=== PATIENT | female | born 1950 | race Caucasian/White ===

== ENCOUNTER 2016-07-22 11:58 | Observation (INO) | payer MEDICARE ==
[2016-07-22] MEDS ORDERED: IPRATROPIUM/ALBUTEROL 0.5/3 MG 3 ML AMPUL.NEB INHALATION ONE ×2 (12:14→13:16)
[2016-07-22] MEDS ORDERED: METHYLPREDNISOLONE SOD 125 MG/2 ML VIAL ONE (12:14)
--- NOTE | 2016-07-22 12:23 | RADIOLOGY REPORT ---
EXAM:CHEST; SINGLE VIEW [id number] INDICATION: Shortness of breath COMPARISON:None TECHNIQUE:AP portable radiograph was obtained. FINDINGS: The heart and mediastinum are normal. There is mild peribronchial thickening. No airspace i nfiltrate or pleural effusion is demonstrated. The chest wall appears intact. There is no pneumothora x. IMPRESSION:Mild airways thickening, which may be from bronchitis or asthma. No acute pneumonia. Final Electronic Signature: This report was electronically signed by Dillon Austin MD on 07/22/2016 12:20 PM. piedad /
[2016-07-22 12:44] LABS: BLOOD UREA NITROGEN 8 mg/dL (7-17); CALCIUM 8.7 mg/dL (8.4-10.2); CHLORIDE 110 mmol/L (98-107); CREATININE 0.6 mg/dL (0.5-1.0); EST GLOMERULAR FILTRATION RATE > 60 mL/min; GLUCOSE 92 mg/dL (70-100); POTASSIUM 3.7 mmol/L (3.5-5.1); SODIUM 141 mmol/L (137-145)
[2016-07-22 12:57] LABS: TROPONIN I < 0.012 ng/mL (0.00-0.034)
[2016-07-22 12:59] LABS: BASOPHILS 0.5 % (0.0-2.0); EOSINOPHILS 1.3 % (0.0-6.0); EOSINOPHILS# 0.1 X 10^3uL (0.0-0.4); HEMATOCRIT 45.4 % (36.0-48.0); HEMOGLOBIN 15.4 g/dL (12.0-16.0); LYMPHOCYTES 20.1 % (20.0-40.0); LYMPHOCYTES# 1.1 X 10^3uL (0.8-3.8); MEAN CELL VOLUME 90.3 fL (84.0-102.0); MEAN CORPUS. HGB CONCENTRATION 33.9 g/dL (32.0-36.0); MEAN CORPUSCULAR HEMOGLOBIN 30.6 pg (29.0-35.0); MONOCYTES 12.9 % (2.0-10.0); MONOCYTES# 0.7 X 10^3uL (0.2-1.0); NEUTROPHILS 65.2 % (54.0-75.0); NEUTROPHILS# 3.5 X 10^3uL (2.6-6.7); PLATELET COUNT 171 X 10^3uL (130-440); RED BLOOD COUNT 5.03 X 10^6uL (4.20-6.10); RED CELL DISTRIBUTION WIDTH 12.5 % (11.5-14.5); WHITE BLOOD COUNT 5.4 X 10^3uL (3.9-10.7)
[2016-07-22] MEDS ORDERED: MAGNESIUM SULFATE 100 ML IV ONE (13:16)
[2016-07-22] MEDS ORDERED: AZITHROMYCIN 250 MG TABLET PO ONE (13:16)
[2016-07-22] MEDS ORDERED: HOME MEDICATION LIST NEEDED 1 EA EACH MC ONE (13:26)
[2016-07-22] MEDS ORDERED: ACETAMINOPHEN 325 MG TABLET PO PRN (13:26)
[2016-07-22] MEDS ORDERED: NICOTINE 21 MG PATCH ONE (13:27)
[2016-07-22] MEDS ORDERED: INFLUENZA VACCINE 60 MCG/0.5 ML IM ONE ×2 (13:43→16:19)
[2016-07-22] MEDS ORDERED: CEFTRIAXONE SODIUM 1,000 MG/10 ML VIAL ONE (13:58)
[2016-07-22] MEDS ORDERED: CEFTRIAXONE SODIUM 1,000 MG/10 ML VIAL IV SCH (14:00)
[2016-07-22] MEDS ORDERED: NORMAL SALINE 100 ML IV ONE (14:05)
--- NOTE | 2016-07-22 14:15 | ER PHYSICIAN DOCUMENTATION ---
Physician Documentation [facility] Name:Marbella Cueva Age:66 yrs Sex:Female :1950 Arrival Date:07/22/2016 Time:11:58 Bed1 Private MD: Onofre Bourgeois Disposition: 07/22/16 13:15 Admit ordered for Abdifatah Reyes. Preliminary diagnosis are COPD Exacerbation, Hypoxia. - Bed requested for Medical/Surgical. - Condition is Fair. - Problem is new. - Symptoms are unchanged. 23 HR OBS Yes HPI: 07/22 12:18 This 66 yrs old Female presents to ER with complaints of Breathing Difficulty.jm 12:18 The patient has shortness of breath at rest. Onset: The symptom(s)/episode jm began/occurred yesterday, and became worse today. Duration: The symptoms are continuous. The patient's shortness of breath is aggravated by nothing. Associated signs and symptoms: Pertinent positives: non-productive cough, Pertinent negatives: chest pain, fever. Severity of symptoms: in the emergency department the symptoms are unchanged. Risk Factors Risk factors for coronary artery disease include: This patient is a smoker. The patient has not experienced similar symptoms in the past. The patient has not recently seen a physician. Pt w 50 pack year hx here w SOB after a bout of laryngitis. She thinks its moved into her lungs. No fever or sputum. Pt thinks she might have COPD, but has never been diagnosed. . Historical: - Allergies: No known drug Allergies; - Home Meds: 1. Metoprolol Tartrate Oral 2. Bupropion Oral 3. Paxil Oral 4. Oxycodone-Acetaminophen Oral 5. Alprazolam Oral - PMHx: Past IV drug abuser; Hypertension; DEPRESSION; ARTHRITIS; - PSHx: ; Cholecysectomy; Tonsillectomy; - Tetanus: < 10 years. - Ebola Screening: : No symptoms or risks identified at this time. . - Social history: Smoking status: Patient uses tobacco products, heavy tobacco smoker. - Immunization history: Pneumococcal vaccine is not up to date, Flu Vaccine >1 year. ROS: 12:27 Constitutional: Negative for fatigue, fever, malaise. jm 12:27 Eyes: Negative for blurry vision, visual disturbance. 12:27 ENT: Positive for hoarseness, Negative for injury or acute deformity. 12:27 Neck: Negative for swelling, swollen nodes. 12:27 Cardiovascular: Negative for chest pain. 12:27 Respiratory: Positive for cough, dyspnea on exertion, shortness of breath, Negative for hemoptysis. 12:27 Abdomen/GI: Negative for abdominal pain, nausea, vomiting, diarrhea. 12:27 Back: Negative for pain at rest, pain with movement. 12:27 MS/extremity: Negative for swelling, tenderness. 12:27 Skin: Negative for rash, swelling. 12:27 Neuro: Negative for dizziness, weakness. 12:27 Psych: Positive for depression, drug dependence, tobacoo. Exam: 12:29 Constitutional: The patient appears alert, awake, anxious, obese, in obvious distress, jm mildly distressed. 12:29 Eyes: Periorbital structures: appear normal, Conjunctiva: normal. 12:29 ENT: Mouth: is normal, Voice: is hoarse. 12:29 Chest/axilla: Inspection: normal, Palpation: is normal. 12:29 Cardiovascular: Rate: normal, Rhythm: regular. 12:29 Respiratory: mild respiratory distress is noted, Respirations: accessory muscle usage, is absent, tachypnea, that is moderate, Breath sounds: bronchial sounds, that are mild, are scattered, are heard diffusely. 12:29 Abdomen/GI: Bowel sounds: normal, Palpation: abdomen is soft and non-tender. 12:29 Back: CVA tenderness, vertebral tenderness, is not appreciated. 12:29 Musculoskeletal/extremity: DVT Exam: No signs of deep vein thrombosis. Calves: are non-tender, have equal circumference. 12:29 Skin: Appearance: Color: pink, no rash present. 12:29 Neuro: Mentation: is normal, Memory: is normal. 12:29 Psych: Behavior/mood is pleasant, cooperative, anxious, Affect is calm. Vital Signs: 12:01 BP 166 / 70; Pulse 68; Resp 32; Temp 98; Pulse Ox 92% on R/A; Weight 83.91 kg (R); lpr Height 5 ft. 7 in. (170.18 cm); Pain 5/10; 12:45 BP 160 / 83; Pulse 59; Resp 19; Pulse Ox 94% on 2 lpm NC; lpr 13:08 BP 155 / 67 RA Sitting; Pulse 62; Resp 22; Pulse Ox 98% on Nebulizer; la 13:40 BP 162 / 80 RA Sitting; Pulse 68; Resp 22; Pulse Ox 96% on 2 lpm NC; la 14:03 BP 119 / 96 RA Sitting; Pulse 65; Resp 20; Pulse Ox 95% on 2 lpm NC; la 12:01 Body Mass Index 28.97 (83.91 kg, 170.18 cm) lpr MDM: 12:01 Patient medically screened. 12:31 Differential diagnosis: Anxiety Reaction asthma, Chronic Obstructive Pulmonary Disease jm pneumonia. Data reviewed: vital signs, nurses notes, and as a result, I will. 13:08 Antibiotic administration: Zithromax is given. Data interpreted: Pulse oximetry: Interpretation: borderline. Test interpretation: by ED physician or midlevel provider: plain radiologic studies, ECG. Counseling: I had a detailed discussion with the patient and/or guardian regarding: the historical points, exam findings, and any diagnostic results supporting the discharge/admit diagnosis, lab results, radiology results, the need for further work-up and treatment in the hospital. ECG:. Medication response: The patient's symptoms have improved, Physician consultation: Abdifatah Reyes MD regarding admission, and will see patient shortly, later today. 13:12 ED course: Pt only mildly better after duonebs, mag, Solu-Medrol, and oxygen. I feel this is COPD (undiagnosed). Pt will be admitted to Dr. Elise for continued respiratory treatments and needed oxygen. . 07/22 12:57 Order name: BASIC METABOLIC PANEL; Complete Time: 13: [facility] 07/22 12:57 Order name: BNP,NT-PRO; Complete Time: 13: [facility] 07/22 12:57 Order name: TROPONIN I; Complete Time: 13: [facility] 07/22 13:03 Order name: CBC AUTO DIF, MDIF/RMOR IF IND; Complete Time: 13: [facility] 07/22 12:24 Order name: CHEST; SINGLE VIEW [id number]; Complete Time: 13: [facility] 07/22 12:03 Order name: 12-lead EKG; Complete Time: 13:03 07/22 12:03 Order name: I & O; Complete Time: 13: 07/22 12:03 Order name: Iv Saline Lock; Complete Time: 13: 07/22 12:03 Order name: Oxygen; Complete Time: 13:03 07/22 12:03 Order name: Pulse Ox Continuous; Complete Time: 07/22 12:03 Order name: Continuous Cardiac Monitoring; Complete Time: : EC:08 Rhythm is regular. QRS [place] is Normal. QT interval is normal. No Q waves. T waves are jm Normal. No ST changes noted. Dispensed Medications: 12:10 Drug: DuoNeb (Albuterol 2.5 mg, Atrovent 0.5 mg); 3 ml; Route: Nebulizer; lpr 12:30 Drug: Solu-MEDROL 125 mg; Route: IVP; Site: right antecubital; lpr 13:08 Drug: DuoNeb (Albuterol 2.5 mg, Atrovent 0.5 mg); 3 ml; Route: Nebulizer; Infused Over: la 10 mins; 13:34 Follow up: Response: No adverse reaction; Marked relief of symptoms la 13:08 Drug: azithromycin 500 mg; Route: PO; la 13:35 Follow up: Response: No adverse reaction la 13:15 Drug: Nicotine Patch 1 patches; {Note: right upper arm.} Route: Transdermal; Site: la affected area; 13:35 Follow up: Response: No adverse reaction la 13:20 Drug: Magnesium Sulfate 1 grams; Route: IVPB; Infused Over: 30 mins; Site: left hand; la 13:52 Follow up: IV Status: Completed infusion; IV Intake: 100ml la 14:01 Drug: Rocephin 1 grams; {Note: 100ml NS.} Route: IVPB; Site: left hand; la 14:13 Follow up: Response: No adverse reaction la 14:14 Follow up: IV Status: Infusion continued upon admission la Signatures: Onofre Moses MD MD jm Roberts, Leslie, RN RN Maribell Flor
--- NOTE | 2016-07-22 14:15 | ER NURSING DOCUMENTATION ---
Nurse's Notes [facility] Name:Marbella Cueva Age:66 yrs Sex:Female :1950 Arrival Date:07/22/2016 Time:11:58 Bed1 Private MD: Diagnosis:COPD Exacerbation;Hypoxia Presentation: 07/22 11:59 Acuity: REMY 2 st 12:05 Presenting complaint: Patient states: started two days ago with laryngitis and lpr progressed to SOB. Worse today. Difficulty speaking in complete sentences. Transition of care: Home. 12:05 Method Of Arrival: Walk In lpr Triage Assessment: 12:49 General: Appears uncomfortable, Behavior is anxious, cooperative. Pain: Complains of lpr pain in all over joint pain from arthritis. patient did not take her oxycodone this am. EENT: Oral mucosa is dry. Neuro: Level of Consciousness is awake, alert, obeys commands, Oriented to person, place, time, event. Cardiovascular: Rhythm is regular Chest pain is denied. Respiratory: Airway is patent Respiratory effort is using tripod position, Respiratory pattern is tachypnea Breath sounds are diminished bilaterally. Reports shortness of breath at rest Onset: The symptoms/episode began/occurred 2 days, the patient has severe shortness of breath. GI: No deficits noted. : No deficits noted. Derm: Skin is intact, is healthy with good turgor, Skin is pink, warm & dry. Musculoskeletal: Circulation, motion, and sensation intact Capillary refill < 3 seconds Range of motion intact in all extremities. Historical: - Allergies: No known drug Allergies; - Home Meds: 1. Metoprolol Tartrate Oral 2. Bupropion Oral 3. Paxil Oral 4. Oxycodone-Acetaminophen Oral 5. Alprazolam Oral - PMHx: Past IV drug abuser; Hypertension; DEPRESSION; ARTHRITIS; - PSHx: ; Cholecysectomy; Tonsillectomy; - Tetanus: < 10 years. - Ebola Screening: : No symptoms or risks identified at this time. . - Social history: Smoking status: Patient uses tobacco products, heavy tobacco smoker. - Immunization history: Pneumococcal vaccine is not up to date, Flu Vaccine >1 year. Screenin:56 Infectious Disease Risk None. Abuse screen: Denies threats or abuse. Nutritional lpr screening: No deficits noted. Assessment: 12:56 See Triage Assessment done by same RN. Cardiovascular: Rhythm is regular. lpr 13:20 Respiratory: Breath sounds are clear bilaterally. in left posterior upper lobe and la right posterior upper lobe Breath sounds are diminished bilaterally. in left posterior lower lobe and right posterior lower lobe. 13:20 Reassessment:. la 13:20 Reassessment: Patient states feeling better. Patient states symptoms have improved. la Patient appears in no apparent distress at this time. Vital Signs: 12:01 BP 166 / 70; Pulse 68; Resp 32; Temp 98; Pulse Ox 92% on R/A; Weight 83.91 kg (R); lpr Height 5 ft. 7 in. (170.18 cm); Pain 5/10; 12:45 BP 160 / 83; Pulse 59; Resp 19; Pulse Ox 94% on 2 lpm NC; lpr 13:08 BP 155 / 67 RA Sitting; Pulse 62; Resp 22; Pulse Ox 98% on Nebulizer; la 13:40 BP 162 / 80 RA Sitting; Pulse 68; Resp 22; Pulse Ox 96% on 2 lpm NC; la 14:03 BP 119 / 96 RA Sitting; Pulse 65; Resp 20; Pulse Ox 95% on 2 lpm NC; la 12:01 Body Mass Index 28.97 (83.91 kg, 170.18 cm) lpr ED Course: 11:59 Patient arrived in ED. ama 11:59 Laura Albarado, RN is Primary Nurse. st 12:[address] 12:01 Onofre Moses MD is Attending Physician. jm 12:17 Port Xray Completed. mr 12:29 Inserted saline lock: 20 gauge in right antecubital area and blood collected. lpr 12:40 EKG done. (by ED staff). Reviewed by Onofre Moses MD. lpr 12:56 Valuables Remains with patient Patient has correct armband on for positive lpr identification. Placed in gown. Bed in low position. Call light in reach. Cardiac Monitoring On for Nurse Monitoring only. Pulse Ox - RN Monitoring Only NIBP On - RN Monitoring Only. 12:57 Report given to Maribell Huber RN. lpr 13:15 Abdifatah Reyes MD is Admitting Physician. jm 13:18 Discontinued IV hard to flush and IV mag not infusing. la 13:20 Inserted saline lock: 20 gauge in left hand. la Administered Medications: 12:10 Drug: DuoNeb (Albuterol 2.5 mg, Atrovent 0.5 mg); 3 ml; Route: Nebulizer; lpr 12:30 Drug: Solu-MEDROL 125 mg; Route: IVP; Site: right antecubital; lpr 13:08 Drug: DuoNeb (Albuterol 2.5 mg, Atrovent 0.5 mg); 3 ml; Route: Nebulizer; Infused Over: la 10 mins; 13:34 Follow up: Response: No adverse reaction; Marked relief of symptoms la 13:08 Drug: azithromycin 500 mg; Route: PO; la 13:35 Follow up: Response: No adverse reaction la 13:15 Drug: Nicotine Patch 1 patches; {Note: right upper arm.} Route: Transdermal; Site: la affected area; 13:35 Follow up: Response: No adverse reaction la 13:20 Drug: Magnesium Sulfate 1 grams; Route: IVPB; Infused Over: 30 mins; Site: left hand; la 13:52 Follow up: IV Status: Completed infusion; IV Intake: 100ml la 14:01 Drug: Rocephin 1 grams; {Note: 100ml NS.} Route: IVPB; Site: left hand; la 14:13 Follow up: Response: No adverse reaction la 14:14 Follow up: IV Status: Infusion continued upon admission la Intake: 13:52 IV: 100ml; Total: 100ml. la Outcome: 13:15 Decision to Admit by Provider. joao 14:13 Admitted to Med/surg accompanied by nurse, with oxygen. la 14:13 Condition: improved 14:13 Report given to Marquis FINLEY 14:15 Patient left the ED. la Signatures: Laura Albarado RN RN st Meyer, John, MD MD jm Roberts, Leslie, RN RN lpr Averdick, Andrew, Reg Maribell Rapp Michael mr
[2016-07-22] MEDS: IPRATROPIUM/ALBUTEROL 0.5/3 MG 3 ML AMPUL.NEB INHALATION SCH ×3 (14:25→21:12)
--- NOTE | 2016-07-22 14:56 | HISTORY & PHYSICAL ---
DATE OF ADMISSION: 07/22/16 CHIEF COMPLAINT: Sob. HISTORY OF PRESENT ILLNESS: This is a 66-year-old female with longstanding smoking history, who presented to the emergency room with a 2-day history of productive cough, wheezing, sore throat, paroxysmal nocturnal dyspnea, orthopnea and worsening shortness of breath. Chest feels tight. No fever, chills, coryza, sinus pressure, postnasal drainage, edema, pyrosis or pleurisy. No angina chest pain. ALLERGIES: None. MEDICATIONS Metoprolol succinate 1 tablet p.o. q.day. Bupropion 1 tablet p.o. q.day. Paxil 1 tablet p.o. q.day. Oxycodone 10 mg p.o. q.i.d. Alprazolam 1 tablet p.o. at bedtime p.r.n. PAST MEDICAL HISTORY 1. Hypertension. 2. Generalized osteoarthritis with associated chronic pain syndrome. 3. Anxiety. 4. Depression. 5. Insomnia. 6. section. 7. Cholecystectomy. 8. Tonsillectomy. 9. Sinus surgery. SOCIAL HISTORY: . Two children. Retired [employer]. Continues to smoke 1 pack per day and has a greater than 52-pack year smoking history. Rare alcohol use. 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 FAMILY HISTORY: Adopted. REVIEW OF SYSTEMS: No heart, asthma, emphysema, kidney, liver, diabetes, thyroid, seizures, peptic ulcer disease, hyperlipidemia, skin allergy or bleeding disorders. No nocturia. PREVENTIVE HEALTH: Due for a flu shot (which will give during her hospital stay). Due for Prevnar and Pneumovax which she will get with her family physician. PHYSICAL EXAMINATION VITAL SIGNS: Blood pressure 166/70, pulse 68, respiratory rate 32, temp 98.0, room air pulse oximetry 92%. GENERAL: Well-developed, well-nourished, overweight female, in mild respiratory distress and speaking in short sentences with some retractions. Alert and oriented times 3. HEENT: EOMI. PERRL. Normal conjunctivae. TMs normal. No coryza. Nasopharynx and oropharynx not injected. NECK: No adenopathy, thyromegaly or bruits. Supple. CHEST: Diminished breath sounds throughout. No rales, rhonchi or wheezes at the time of my exam. COR: RRR without murmurs, gallops, rubs or clicks. No jugular venous distention. No ectopy. Chest wall nontender to palpation or compression. ABDOMEN: Soft, nontender. No hepatosplenomegaly. No masses. No bruits. Bowel sounds present. LOWER EXTREMITIES: No edema, good pulses. Negative Homans sign. No calf tenderness. NEUROLOGIC: Cranial nerves 2 through 12 are intact. Motor 5/5. Sensory intact. CHEST X-RAY: No infiltrate or evidence of CHF. Per radiologist, the patient does have mild peribronchial airway thickening. LABORATORY STUDIES: WBC 5.4, H&H 15.4/45.5, platelets 71,000. Sodium 141, potassium 3.7, chloride 110, CO2 24, BUN 8, creatinine 0.6, Troponin I < 0.012, calcium 8.7, ProBNP 1540. ASSESSMENT 1. Chronic obstructive pulmonary disease exacerbation. 2. Viral syndrome. 3. Hypertension. 4. Chronic pain syndrome related to generalized osteoarthritis. 5. History of IV drug abuse. PLAN 1. Solu-Medrol 120 mg IV q.6h. 2. Rocephin 1 g IV q.24 hours and Z-Sonny prophylaxis. 3. Mucinex 1200 mg p.o. b.i.d. 4. DuoNeb updrafts q.4h. 5. Oxygen 2 liters per minute by nasal prongs. 6. Nicotine patch. Discussed smoking cessation. 7. Flu shot. Copy to Dr. Holland Titus, [place]. [facility]
[2016-07-22] MEDS: GUAIFENESIN ER 600 MG TABLET PO SCH (14:59)
[2016-07-22] MEDS: METHYLPREDNISOLONE SOD 125 MG/2 ML VIAL IV SCH ×2 (15:00→20:49)
[2016-07-22] MEDS ORDERED: oxyCODONE HCL IR 20 MG TABLET PO SCH (17:00)
[2016-07-22] MEDS ORDERED: IPRATROPIUM/ALBUTEROL 0.5/3 MG 3 ML AMPUL.NEB INHALATION SCH (17:00)
[2016-07-23] MEDS: IPRATROPIUM/ALBUTEROL 0.5/3 MG 3 ML AMPUL.NEB INHALATION SCH ×3 (02:00→09:21)
[2016-07-23] MEDS: METHYLPREDNISOLONE SOD 125 MG/2 ML VIAL IV SCH ×2 (02:00→08:02)
[2016-07-23] MEDS: GUAIFENESIN ER 600 MG TABLET PO SCH (02:00)
[2016-07-23 06:51] VITALS: BP 161/92; PULSE 79; RESP 20; TEMP 97.8
[2016-07-23] MEDS ORDERED: NICOTINE 21 MG PATCH TRANSDERM SCH (09:00)
[2016-07-23] MEDS ORDERED: AZITHROMYCIN 250 MG TABLET PO SCH (09:00)
[2016-07-23] MEDS ORDERED: buPROPion XL DAILY 150 MG TABLET PO SCH (09:30)
[2016-07-23] MEDS ORDERED: PAROXETINE HCL 20 MG TABLET PO SCH (09:30)
--- NOTE | 2016-07-23 09:57 | PROGRESS NOTE: IM SOAP ---
IM: PN Subjective Interval history: Doing much better today. Slight nonproductive cough, No SOB/wheezing. Discussed smoking cessation again. IM: PN Objective Exam - I&O/Vital Signs I&O: Intake & Output 07/22/16 07/23/16 07/23/16 21:59 05:59 13:59 Intake Total 950 Output Total 1300 Balance -350 Weight 81.193 kg Intake: Oral 950 Output: Urine 1300 Other: Urine Appearance Clear Urine Color Yellow Voiding Method Toilet Toilet # Voids 3 Vital Signs: Last Vital Signs Temp 36.6 C 07/23/16 06:49 Pulse 79 07/23/16 06:49 Resp 20 07/23/16 06:49 BP 161/92 07/23/16 06:49 Pulse Ox 97 07/23/16 06:49 Oxygen Flow Rate 1 Oxygen Delivery Method Nasal Cannula - Neck Neck exam: Present: full ROM. Absent: thyromegaly - Respiratory Respiratory exam: Present: clear (Improved BS throughout compared to yesterday) . Absent: rales, rhonchi, wheezes - Cardiovascular Cardiovascular exam: Present: RRR. Absent: systolic murmur - GI/Abdominal GI/Abdominal exam: Present: soft. Absent: tenderness - Extremities Exam Extremities exam: Absent: edema - Lab Labs: Laboratory Last Values WBC 5.4 X 10^3uL (3.9-10.7) 07/22/16 12:20 RBC 5.03 X 10^6uL (4.20-6.10) 07/22/16 12:20 Hgb 15.4 g/dL (12.0-16.0) 07/22/16 12:20 Hct 45.4 % (36.0-48.0) 07/22/16 12:20 MCV 90.3 fL (84.0-102.0) 07/22/16 12:20 MCH 30.6 pg (29.0-35.0) 07/22/16 12:20 MCHC 33.9 g/dL (32.0-36.0) 07/22/16 12:20 RDW 12.5 % (11.5-14.5) 07/22/16 12:20 Plt Count 171 X 10^3uL (130-440) 07/22/16 12:20 MPV 9.0 fL (7.4-10.4) 07/22/16 12:20 Neutrophils % 65.2 % (54.0-75.0) 07/22/16 12:20 Lymphocytes % 20.1 % (20.0-40.0) 07/22/16 12:20 Eosinophils % 1.3 % (0.0-6.0) 07/22/16 12:20 Basophils % 0.5 % (0.0-2.0) 07/22/16 12:20 Neutrophils # 3.5 X 10^3uL (2.6-6.7) 07/22/16 12:20 Lymphocytes # 1.1 X 10^3uL (0.8-3.8) 07/22/16 12:20 Monocytes 12.9 % (2.0-10.0) H 07/22/16 12:20 Monocytes # 0.7 X 10^3uL (0.2-1.0) 07/22/16 12:20 Eosinophils # 0.1 X 10^3uL (0.0-0.4) 07/22/16 12:20 Basophils # 0.0 X 10^3uL (0.0-0.1) 07/22/16 12:20 Sodium 141 mmol/L (137-145) 07/22/16 12:20 Potassium 3.7 mmol/L (3.5-5.1) 07/22/16 12:20 Chloride 110 mmol/L (98-107) H 07/22/16 12:20 Carbon Dioxide 24 mmol/L (22-30) 07/22/16 12:20 BUN 8 mg/dL (7-17) 07/22/16 12:20 Creatinine 0.6 mg/dL (0.5-1.0) 07/22/16 12:20 GFR Calculation > 60 mL/min 07/22/16 12:20 Glucose 92 mg/dL (70-100) 07/22/16 12:20 Calcium 8.7 mg/dL (8.4-10.2) 07/22/16 12:20 Troponin I < 0.012 ng/mL (0.00-0.034) 07/22/16 12:20 NT-Pro-B Natriuret Pep 1540 pg/mL (<125) H 07/22/16 12:20 Assessment and Plan - Date of Encounter Date of Encounter: 07/23/16 (1) COPD exacerbation Status: Acute Assessment and plan: Improving D/C Home Current Visit: Yes (2) Hypoxia Status: Resolved Current Visit: Yes (3) Viral syndrome Status: Acute Current Visit: Yes - Time Spent With Patient Total time spent with greater than 50% in coordination of care (as documented) at patient's floor/unit and/or counseling patient: Quality Questions - VTE Prophylaxis Assessment VTE Present on Admission?: No Patient at risk for venous thromboembolism?: No VTE Risk Level: Very Low Risk VTE Medical Contraindication: Treatment not indicated
[2016-07-23 11:44] VITALS: O2SAT 90
--- NOTE | 2016-07-23 13:22 | DISCHARGE SUMMARY ---
DATE OF ADMISSION: 07/22/16 DATE OF DISCHARGE: 07/23/16 ATTENDING PHYSICIAN: Abdifatah Reyes MD DIAGNOSES 1. Chronic obstructive pulmonary disease exacerbation. 2. Hypoxia, resolved. 3. Viral syndrome. 4. Hypertension. 5. Chronic pain syndrome related to generalized osteoarthritis. 6. History of IV drug abuse. HISTORY OF PRESENT ILLNESS: Patient is 66-year-old female with a long standing smoking history, presented to the Emergency Room with a 2-day history of productive cough, wheezing, sore throat, paroxysmal nocturnal dyspnea, orthopnea and worsening shortness of breath. Her chest felt tight. No fever, chills, coryza, sinus pressure, postnasal drainage, edema, pyrosis or pleurisy. No anginal chest pain. She has a history of IV drug use, but has been sober for 12 years. She continues to smoke 1 pack per day and has a greater than a 52-pack -a-year smoking history. Please see previously dictated history and physical for further details. HOSPITAL COURSE: The patient was admitted with chronic obstructive pulmonary disease exacerbation with associated hypoxia and presumptive viral syndrome. The patient was placed on Solu-Medrol 120 mg IV q.6 hours, prophylactic Rocephin 1 gram IV q.24 hours and a Z-pack, Mucinex, [facility] and oxygen at 2 liters per minute by nasal prongs. By the time she was discharged, she was back on room air oxygen, and overall was feeling dramatically better than on admission. She did have a Nicotine patch placed during her stay, and smoking cessation was discussed at length; however, she does not plan to discontinue smoking at this time. She did receive a flu shot and I encouraged her to follow up with her family doctor for pneumonia vaccines. DISCHARGE INSTRUCTIONS: Patient may participate in activities as able. She is on a no-added salt diet. She will follow up with her physician [facility] in the next week. She may benefit from Prevnar and Pneumovax vaccines in the future. DISCHARGE MEDICATIONS Prednisone 20 mg p.o. taper, 3 tabs daily for 3 days, 2 tabs daily for 3 days, 1 tab daily for 3 days. Mucinex 1200 mg p.o. b.i.d. (OTC). ProAir HFA inhaler 2 puffs q.i.d. PRN. Prophylactic Azithromycin 250 mg p.o. daily x3 days. Oxycodone 10 mg p.o. q.i.d. Paroxetine 20 mg p.o. daily. Metoprolol succinate 100 mg p.o. daily. Bupropion XL 300 mg p.o. daily. Alprazolam 0.5 mg p.o. q.i.d. plus 0.5 mg p.o. q.h.s. PRN. Ibuprofen 200-400 mg p.o. q.i.d. PRN. Copies to: Holland Titus MD ([facility]) [facility]
[2016-07-23] MEDS ORDERED: CEFTRIAXONE SODIUM 1,000 MG/10 ML VIAL IV SCH (14:00)
== END 2016-07-23 11:15 | disposition home or self-care (01) ==
LOC: ER 11:58 → IN 14:05
PROVIDERS: ADMIT Family Medicine; ATTEND Family Medicine
DX: J44.1 Chronic obstructive pulmonary disease with (acute) exacerbation (principal); Z72.0 Tobacco use; B34.9 Viral infection, unspecified; F32.9 Major depressive disorder, single episode, unspecified; G47.00 Insomnia, unspecified; G89.4 Chronic pain syndrome; Z79.899 Other long term (current) drug therapy
CPT/HCPCS: 71010; 80048; 83880; 84484; 85025; 93005; 93010; 94640; 96365; 96372; 96375; 96376; 99217; 99220; 99285; G0378; J0696; J2930; J3475; J7620; Q0144; S4990